=== PATIENT | female | born 1985 | race Caucasian/White ===

== ENCOUNTER 2018-02-27 07:34 | Emergency (ER) | payer MEDICAID ==
[~2018-02-27] VITALS: Ht 170.2 cm; Wt 74.8 kg
--- NOTE | 2018-02-27 07:34 | NUR ---
Patient BIBA to bed 4 at this time.
[2018-02-27 07:39] VITALS: BP 119/78
--- NOTE | 2018-02-27 07:44 | NUR ---
PT BIBA FOR C/O HEADACHE 8/10 PAIN FOR 2 DAYS, WILD MILD BLURRED VISION AND NAUSEA. DENIES VOMITING, SOB OR DIZZINESSS. AMBULATES TO BED WITH NORMAL GAIT. PLACED ON ALL MONITORS, VS WNL. DR ZULETA NOTIFED OF PT CONDITION.
[2018-02-27] MEDS ORDERED: LIDOCAINE MPF 1% - **ER/OR** 10 MG/ML VIAL INJ ONE (07:55)
--- NOTE | 2018-02-27 08:09 | NUR ---
Patient being evaluated by DR ZULETA at bedside.
--- NOTE | 2018-02-27 08:12 | NUR ---
DR ZULETA AT BEDSIDE TO GIVE IM LIDOCAINE
--- NOTE | 2018-02-27 09:06 | NUR ---
Sonia dorsey in EDM - 02/27/18 at 0906 by [facility] PAIN REASSESSMENT PAT REPORTS PAIN 12/28 AFTER IM LIDOCAINE
--- NOTE | 2018-02-27 09:06 | NUR ---
PAIN REASSESSMENT PT REPORTS PAIN 5/10 AFTER IM LIDOCAINE
[2018-02-27 09:11] VITALS: BP 112/77
== END 2018-02-27 09:02 | disposition home or self-care (01) ==
LOC: MED 07:34
DX: G44.209 Tension-type headache, unspecified, not intractable (principal); N39.0 Urinary tract infection, site not specified; Z90.49 Acquired absence of other specified parts of digestive tract
CPT/HCPCS: 20552; 81002; 81025; 99284; J2001